=== PATIENT | female | born 1955 | race Caucasian/White ===

== ENCOUNTER → 2017-01-18 | Outpatient (CLI) | payer MEDICAID | LOC: BRMIMAGING 15:14 | PROVIDERS: ATTEND Family Medicine | DX: M25.512 Pain in left shoulder (principal) | CPT/HCPCS: 73030-PO ==

== ENCOUNTER → 2017-01-21 | Outpatient (CLI) | payer MEDICAID | LOC: BRMIMAGING 13:52 | PROVIDERS: ATTEND Family Medicine | DX: M25.512 Pain in left shoulder (principal); M47.22 Other spondylosis with radiculopathy, cervical region | CPT/HCPCS: 72040-PO ==

== ENCOUNTER → 2017-08-24 | Outpatient (CLI) | payer MEDICAID | LOC: BRMIMAGING 14:36 | PROVIDERS: ATTEND Family Medicine | DX: Z12.31 Encounter for screening mammogram for malignant neoplasm of breast (principal); Z80.3 Family history of malignant neoplasm of breast ==

== ENCOUNTER → 2017-09-08 | Outpatient (CLI) | payer MEDICAID | LOC: BRMIMAGING 09:49 | PROVIDERS: ATTEND Family Medicine | DX: R92.0 Mammographic microcalcification found on diagnostic imaging of breast (principal) ==

== ENCOUNTER → 2017-09-27 | Day surgery (SDC) | payer MEDICAID ==
[~2017-09-27] MED LIST: BUPIVACAINE 0.5% 10 ML SDV ONE; LIDOCAINE 1% 300 MG/30 ML SDV ONE; THROMBIN (BOVINE) 5,000 UNIT VIAL TP ONE
== END | disposition home or self-care (01) ==
LOC: FIMAGING 07:26
PROVIDERS: ATTEND Family Medicine
PROC: 0HBT3ZX Excision of Right Breast, Percutaneous Approach, Diagnostic (ICD-10-PCS; principal; 2017-09-27)
DX: N60.11 Diffuse cystic mastopathy of right breast (principal); Z80.3 Family history of malignant neoplasm of breast

== ENCOUNTER 2017-09-28 22:36 | Emergency (ER) | payer MEDICAID ==
[2017-09-28 22:48] VITALS: BP 134/74
[2017-09-28] MEDS ORDERED: oxyCODONE IR 5 MG TAB PO ONE (23:06)
--- NOTE | 2017-09-28 23:06 | EDPHY ---
General Time Seen by Provider: 09/28/17 22:55 Narrative: CHIEF COMPLAINT: Bleeding from biopsy site HISTORY OF PRESENT ILLNESS: Patient presents with complaints of pain and bleeding from biopsy site. This is a right breast biopsy performed yesterday afternoon here at this hospital. She said postprocedure she had some difficulty with hemostasis. She was here for 3 hr with 2 individual doses of thrombin at the site. She eventually had hemostasis obtained with discharge home. Since then she reports some pain and increasing bleeding from the site. There is circular bleeding on the gauze when she changes this frequently. There is no saturation of the gauze. Her pain is increased and she feels a "knot in the area."She has no chest pain or shortness of breath. No bleeding from any other site. No other associated complaints or modifying factors. MEDICAL/SURGICAL/SOCIAL HISTORY: Right breast biopsy yesterday here. Nonsmoker. No anticoagulation use. Primary care physician is Dr. Tee REVIEW OF SYSTEMS: Ten systems reviewed and are negative unless otherwise noted in the HPI EXAMINATION General Appearance: Alert, no distress Cardiovascular: Pulses normal throughout. Good signs of perfusion Skin: Female site monitor (Veda ROSE) Warm and dry, no rash. There is a right breast incision with Steri-Strips over that are clean with minimal blood centrally. There is no active bleeding. No surrounding erythema or cellulitis. There is some palpable edema centrally suspected hematoma. No dehiscence. No active bleeding. Extremities: Nontender, no pedal edema DIFFERENTIAL DIAGNOSES: Including but not limited to hematoma, arterial injury, venous injury, capillary bed injury, post biopsy pain MDM: 10:55 p.m. Post biopsy pain with some bleeding at home with no active bleeding here. I have evaluated the wound with site monitor at bedside and appreciate suspected hematoma formation with no active bleeding but very painful to palpation. There is no sign of infection. She is in no acute distress vital signs stable. I have ordered pain medication for her. She is not requiring emergent hemostasis intervention. 11:25 p.m. Case discussed with Dr. Preciado. He agrees with management of the patient thus far. I re-evaluated the patient at this time and she still has no bleeding. We will place her dressing with Gelacio wrap. She will be discharged home at this time with instructions to contact the radiology department and her primary care physician tomorrow morning. Strict ED precautions for any return of the bleeding, saturation of the dressing, pain, fever cover redness or warmth to the surgical incision site. She is comfortable this plan and would like to go home. Discharged in stable condition. SUPERVISION: Patient was independently examined, but I discussed the case with my secondary supervising physician Dr. Preciado - History Smoking Status: Never smoked - Objective Vital Signs: Initial Vital Signs Temperature (C) 98.1 F 09/28/17 22:44 Heart Rate 73 09/28/17 22:44 Respiratory Rate 18 09/28/17 22:44 Blood Pressure 134/74 H 09/28/17 22:44 O2 Sat (%) 94 09/28/17 22:44 O2 Delivery Mode Room Air Allergies/Adverse Reactions: No Known Allergies Allergy (Unverified 09/28/17 22:43) Home Medications: Medication Instructions Recorded Claritin 09/28/17 Metformin HCl 09/28/17 [place]-3 09/28/17 Preservision Areds Tablet 09/28/17 Medications Given: Discontinued Medications Oxycodone HCl (Oxycodone Ir) 5 mg PO EDNOW ONE Stop: 09/28/17 23:07 Last Admin: 09/28/17 23:11 Dose: 5 mg Departure - Departure Disposition: Home, Routine, Self-Care Clinical Impression: Status post breast biopsy, Acute pain of breast Condition: Good Instructions: Fine Needle Breast Biopsy (DC), Vacuum-assisted Breast Biopsy (DC ) Additional Instructions: 1. Continue compressive dressing as applied 2. Contact ordering physician tomorrow morning or interventional radiology physician as provided 3. Return here for increased bleeding, pain, fever Referrals: Alec Tee DO [Primary Care Provider] - As per Instructions Maurisio Borden MD [Medical Doctor] - As per Instructions
== END 2017-09-28 23:28 | disposition home or self-care (01) ==
DX: N64.4 Mastodynia (principal); Z79.84 Long term (current) use of oral hypoglycemic drugs; Z98.890 Other specified postprocedural states

== ENCOUNTER → 2018-03-28 | Outpatient (CLI) | payer MEDICAID | LOC: FIMAGING 13:15 | PROVIDERS: ATTEND Family Medicine | DX: Z09 Encounter for follow-up examination after completed treatment for conditions other than malignant neoplasm (principal) ==